=== PATIENT | male | born 1950 | race Caucasian/White ===

== ENCOUNTER 2016-06-15 08:10 | Outpatient (CLI) | payer OTHER ==
--- NOTE | 2016-06-15 09:55 | DIAGNOSTIC IMAGING REPORT ---
PROCEDURE: MR UPPER EXTREMITY W/O CONT-LT INDICATION: Chronic increasing left shoulder pain, initial encounter. TECHNIQUE: PD and FAT-SAT PD, axial, and coronal-oblique images. PD and STIR sagittal-oblique images. COMPARISON: Left shoulder x-ray 06/05/2016. FINDINGS: Mild AC joint degenerative changes. Caudal angulation of type 2 acromion resulting in impingement. Thickening and diffuse increased signal of the distal rotator consistent with tendonitis. There is a 1.2 cm AP insertional tear of the supraspinatus tendon anteriorly, which appears to be partial thickness. However, associated small subdeltoid and sub acromial bursal fluid collection raise the possibility of a full-thickness insertional tear. Edema of the rotator interval suggests a tear. Abnormal signal of the glenoid labrum suggests a superior labral tear. Tendinosis of the bicipital tendon long head with suspected tear. Bicipital tendon appears to be normally positioned. No evidence of muscular atrophy. No suspicious osseous lesions. IMPRESSION: 1. Impingement 2. Distal rotator cuff tendonitis with insertional tear of the distal supraspinatus tendon, associated with a subdeltoid and subacromial bursal effusion, possibly full-thickness. 3. Rotator interval edema suggestive of a tear 4. Suspect superior labral tear 5. Bicipital tendon long head tendinosis with suspected tear
== END 2016-06-15 23:00 ==
LOC: MRI SRH 08:10
DX: M75.42 Impingement syndrome of left shoulder (principal); S46.812A Strain of other muscles, fascia and tendons at shoulder and upper arm level, left arm, initial encounter; M25.412 Effusion, left shoulder; M75.80 Other shoulder lesions, unspecified shoulder